=== PATIENT | female | born 1995 | race Caucasian/White ===

== ENCOUNTER 2024-01-15 20:48 | Emergency (ER) | payer OTHER, SELFPAY ==
[2024-01-15 20:49] VITALS: BMI 26.5
[2024-01-15 20:53] VITALS: BP 99/59
[2024-01-15 21:45] VITALS: BP 97/64
--- NOTE | 2024-01-15 21:59 | ED.GENMED ---
History of Present Illness
General
Chief Complaint: Alcohol Problem
Source: patient, ambulance crew and other (friends)
Exam Limitations: none
Time Seen by Provider: 01/15/24 21:19
Nursing documentation reviewed up to this point in time: agreed with
Travel History
Have you had any contact with someone who has COVID-19?: No
Do you have any symptoms of coronavirus? Fever > 100 degrees, chills, cough, shortness of breath, sore throat, loss of taste or smell, muscle aches, or headache?: No
History of Present Illness
History of Present Illness:
Patient brought to ED via EMS for alcohol intoxication. Patient states she had 9 drinks tonight, passed out and then vomited. 911 called by another guest and she was brought to ED. She is awake and alert, in no distress.
Past History
Past History
ED Past Medical History: None
ED Past Surgical History: None
Review of Systems
Review of Systems
Allergies reviewed?: Yes
All Other Systems: ROS reviewed and negative except as documented in HPI and ROS
Constitutional: Reports no symptoms
EENT: Reports no symptoms
Respiratory: Reports no symptoms
Cardiac: Reports no symptoms
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
: Reports no symptoms
Musculoskeletal: Reports no symptoms
Skin: Reports no symptoms
Neurological: Reports other (intoxicated)
Psychiatric: Reports no symptoms
Phy Exam
General Physical Exam
General Presentation: well appearing and no apparent distress
General age: appears stated age
General Skin: warm and dry
General Habitus: normal
Cardiovascular Exam
Cardiovascular Exam: regular rate/rhythm and no edema
Pulmonary Exam
Pulmonary Exam: lungs clear and no respiratory distress
Neurological Exam
Neurological Exam: alert, oriented x3, CN II-XII intact, no motor deficits, no sensory deficits and normal gait
Musculoskeletal Exam
Musculoskeletal Exam: full ROM and neuro vasc intact
Skin Exam
Skin Exam: normal color, warm/dry and no rash
Psychiatric Exam
Psychiatric Exam: normal mood/affect
Scores
Withdrawal Assessment of Alcohol
Withdrawal Assessment Completed?: Not applicable
Course
Vital Signs
Initial and Last Documented VS:
Initial Vital Signs
Temp Pulse Resp BP Pulse Ox
98.3 F 80 16 99/59 100
01/15/24 20:53 01/15/24 20:53 01/15/24 20:53 01/15/24 20:53 01/15/24 20:53
Last Documented Vital Signs
Temp Pulse Resp BP Pulse Ox
98.3 F 78 16 97/64 99
01/15/24 20:53 01/15/24 21:45 01/15/24 21:45 01/15/24 21:45 01/15/24 21:45
*Pulse Oximetry
Patient hypoxic: no
*Critical Care Note
Total Time (30-74mins, 75-104mins- exclusive of procedures): Not Applicable
Update Note
Update Note:
Patient to be discharged home with friends who are not intoxicated. Instructed to refrain from any further drinking tonight.
ED Attending Note
-
Portions of this chart may have been created with voice recognition software.� Occasional wrong word or��sound alike� substitutions may have occurred due to the inherent limitations of voice recognition software.
Discharge Plan
Departure
Patient Disposition: Home (Routine Discharge)
Date of Disposition: 01/15/24
Time of Disposition: 21:54
Patient with high blood pressure during this ER visit?: No
Condition: Good
Covid-19: Not Applicable
Discharge Problem:
Alcohol intoxication
Instructions: Alcohol Intoxication ED
Activity Restrictions/Additional Instructions:
Refrain from any further alcoholic beverages tonight. FOllow up with your family doctor.
Interventions
Interventions:
*Risk Screen - Suicide Last Done: 01/15/24 20:49
*General Assessment Last Done: 01/15/24 20:49
*Neglect/Abuse Screening Last Done: 01/15/24 20:49
ED- Fall Risk Assessment Last Done: 01/15/24 22:10
*ED COVID-19 Vaccine History Last Done: 01/15/24 20:49
*Nursing Disposition Last Done: 01/15/24 22:10
ED- Neurological Assessment Last Done: 01/15/24 20:56
ED-Psychological Assessment Last Done: 01/15/24 20:55
Discharge Date and Time
Discharge Date/Time: 01/15/24 22:10
Print Language: [id number]
== END 2024-01-15 22:10 | disposition home or self-care (01) ==
LOC: EMR 20:48
PROVIDERS: EMERGENCY PHYSICIAN Emergency Medicine
DX: F10.129 Alcohol abuse with intoxication, unspecified (principal); R11.10 Vomiting, unspecified; Z91.018 Allergy to other foods
CPT/HCPCS: 99283